=== PATIENT | female | born 1995 | race Caucasian/White ===

== ENCOUNTER 2019-01-12 06:49 | Inpatient (IN) | payer BC ==
[~2019-01-12] VITALS: Ht 167.6 cm; Wt 73.6 kg
[2019-01-13] VITALS (44 sets, daily range): BP systolic 105–155; BP diastolic 55–83; PULSE 68–141; TEMP 97.9–98.6
--- NOTE | 2019-01-13 07:00 | NUR ---
Pt arrives on unit ambulatory with spouse for induction of labor. G1L0 at 39.6 weeks gestation. Changed into clean gown. EFM and toco applied. VSS. Denies vaginal bleeding, regular ctx, LOF, and reports GFM. Admission assessment completed. IV started in LW. Labs drawn. LR infusing. Consents signed. Pt oriented to room. Updated on POC. Bed locked in low position. Call light within reach. No questions or concerns at this time.
[2019-01-13] MEDS ORDERED: PRENATAL MVI (07:19)
[2019-01-13 08:07] LABS: BASO % 0.4 % (0.0-2.0); EOS # 0.1 (0.0-0.7); EOS % 0.8 % (0-4.0); GRAN # 5.9 (1.4-6.5); GRAN % 71.5 % (42.2-75.2); HEMATOCRIT 38.9 % (37.0-47.0); HEMOGLOBIN 13.5 g/dl (12.5-16.0); LYMPH # 1.4 (1.2-3.4); MEAN CELL VOLUME 92 fl (80.0-100.0); MEAN CORPUSCULAR HEMOGLOBIN 32 pg (27.0-31.0); MEAN CORPUSCULAR HGB CONC 35 g/dl (33.0-37.0); MEAN PLATELET VOLUME 10.4 fl (7.4-10.4); MONO # 0.7 (0.1-0.6); MONO % 8.9 % (1.7-9.3); PLATELET COUNT 219 K/mm3 (130-400); RED BLOOD COUNT 4.24 M/mm3 (4.10-5.30); REDCELL DISTRIBUTION WIDTH-CV 12.8 % (11.5-14.5)
[2019-01-13 08:32] LABS: ALBUMIN 3.2 gm/dL (3.5-5.0); BILIRUBIN,TOTAL 0.9 mg/dL (0.0-1.0); CALCIUM 9.2 mg/dL (8.4-10.2); CREATININE, serum 0.5 (0.52-1.25); TOTAL PROTEIN 6.5 gm/dL (6.4-8.2)
--- NOTE | 2019-01-13 10:25 | NUR ---
Pt sitting up for epidural placement. Difficulty tracing FHR due to maternal position. RN at bedside adjusting monitors. FHR audible.
--- NOTE | 2019-01-13 16:25 | NUR ---
SVE per this RN C/+1. Pushing efforts performed. Moves vertex well. Dr. Chow notified. See physiciain notification. Pt prepped for delivery. 1645-Dr. Chow at bedside. Begins pushing with pt. 170- of viable male attended by Dr. Chow. Cord clamped x 2 and cut from umbilicus. dried and placed on mother's abdomen. Care of infant to Padmini Christie RN. Apgars 8/9/9. 1705- of placenta. Pitocin bolus infusing. Fundus firm at umbilicus. Bleeding WNL. Second degree laceration and episiotomy repaired. Pericare performed. Ice pack applied. Pt updated on POC. Safety reviewed. Call light within reach. No questions or concerns at this time.
--- NOTE | 2019-01-13 20:00 | NUR ---
Up to bathroom with steady gait, voids good amount, performs own pericare after instruction, clean gown on. Ambulates to room.
[2019-01-14] VITALS: BP 118/67; PULSE 69; TEMP 98.3
[2019-01-14 08:00] VITALS: BP 130/68; PULSE 86; TEMP 98.1
--- NOTE | 2019-01-14 08:15 | NUR ---
Rests in bed holding baby. Request pain medication. Percocet 5/325 mg one given per request and as ordered. Denies other needs at this time.
--- NOTE | 2019-01-14 09:23 | NUR ---
Initial visit; Parents thanked for looking in them and offering congratulations for the of their son. thanked family for choosing [facility].
[2019-01-14 13:00] VITALS: BP 119/57; PULSE 92; TEMP 97.7
--- NOTE | 2019-01-14 13:15 | NUR ---
Rests in bed, alert. 1330 Baby to breast. 1340 Percocet 5/325 mg one given per request and as ordered.
[2019-01-14 16:45] VITALS: BP 131/78; PULSE 94; TEMP 97.5
--- NOTE | 2019-01-14 17:28 | NUR ---
Visits with family. Request pain medication. Percocet 5/325 mg one given per request and as ordered.
[2019-01-14 21:30] VITALS: BP 127/79; PULSE 90; TEMP 98.1
[2019-01-15 08:11] VITALS: BP 121/80; PULSE 93; TEMP 98.6
[2019-01-15] MEDS ORDERED: PERCOCET 325 MG1 TA2 PO (10:25)
== END 2019-01-15 12:52 | disposition home or self-care (01) | DRG 807 ==
LOC: LDR 01-13 06:49 → OB 01-13 21:22
PROVIDERS: ADMIT Obstetrics & Gynecology
PROC: 10E0XZZ Delivery of Products of Conception, External Approach (ICD-10-PCS; principal; 2019-01-13)
PROC: 0KQM0ZZ Repair Perineum Muscle, Open Approach (ICD-10-PCS; 2019-01-13)
PROC: 10907ZC Drainage of Amniotic Fluid, Therapeutic from Products of Conception, Via Natural or Artificial Opening (ICD-10-PCS; 2019-01-13)
PROC: 3E033VJ Introduction of Other Hormone into Peripheral Vein, Percutaneous Approach (ICD-10-PCS; 2019-01-13)
DX: O99.89 Other specified diseases and conditions complicating pregnancy, childbirth and the puerperium (principal); Z37.0 Single live birth; O70.1 Second degree perineal laceration during delivery; N28.89 Other specified disorders of kidney and ureter; Z3A.39 39 weeks gestation of pregnancy
CPT/HCPCS: J2590; J7120

== ENCOUNTER 2020-12-06 10:01 | Outpatient (CLI) | payer BC ==
[~2020-12-06] VITALS: Ht 167.6 cm; Wt 73.5 kg
[~2020-12-06 10:01] MED LIST: PERCOCET 325 MG1 TA2 PO; PRENATAL MVI
--- NOTE | 2020-12-06 10:20 | NUR ---
Admits to L&D for scheduled external version. Ambulatory to unit, accompanied by spouse. Procedure explained to patient et spouse. Discussed ultrasound would be performed prior to beginning procedure to assure presentation and lie. Discussed Brethine administration, IV start, potential for emergent ceserean section. Verbalizes understanding. Denies any questions or concerns.
[2020-12-06] MEDS ORDERED: ASPIRIN 81M81 MG/TA2 PO (10:57)
[2020-12-06 11:00] VITALS: BP 127/73; PULSE 91; TEMP 98.8
--- NOTE | 2020-12-06 11:21 | NUR ---
ALYSSIA Rodriguez, in to speak with patient and introduce herself.
[2020-12-06 11:30] VITALS: PULSE 86
--- NOTE | 2020-12-06 11:37 | NUR ---
Allowed off of EFM @ this time, up to bathroom.
--- NOTE | 2020-12-06 11:45 | NUR ---
here, bedside ultrasound confirms breech presentation.
--- NOTE | 2020-12-06 11:47 | NUR ---
Verbal order obtained by to hold off on administration of Brethine. in room. and begin procedure without use of Brethine. Coaching provided to patient througout to breathe through discomfort, working to relax abdominal muscles. Two aggressive attempts made to flip fetus, unsuccessful. Patient requests to stop, declines third attempt. Patient tearful, but tolerates procedure very well.
--- NOTE | 2020-12-06 11:59 | NUR ---
Placed back on EFM following external cephalic version attempts. Will monitor for one hour per 's verbal order.
[2020-12-06 12:05] VITALS: BP 127/78; PULSE 93
--- NOTE | 2020-12-06 12:05 | NUR ---
1205: Repositioned to left lateral. Patient uncomfortable in this position, so flipped to right lateral for comfort.
--- NOTE | 2020-12-06 12:10 | NUR ---
Note what appears to be prolonged deceleration from [id number], though not enough information has been obtained following procedure. Repositioning of patient, will continue to monitor. Moderate variability remains throughout. in-house, reviewed strip.
--- NOTE | 2020-12-06 12:25 | NUR ---
Roles in to speak with patient prior to leaving hospital. Patient assured monitor strip looks great. Discusses plan of care in future, keeping future appointments as scheduled. No need to schedule appointment before already scheduled existing appointments.
[2020-12-06 13:00] VITALS: BP 93/56; PULSE 75
--- NOTE | 2020-12-06 13:00 | NUR ---
Discharge instructions gone over with patient and spouse. Allowed to ask questions. Inquire as to activity restrictions, complications to look out for. Discussed to return immediately if she experiences any bright red bleeding, leaking of fluid, or feels as though her fetus is not as active as usual. Discuss no activity restrictions, but encouraged to listen to her body, as she will likely be sore over the next few days. Patient spouse mentions that she has had some "heart flutters" the last couple of weeks. Patient denies any of those feelings today. Encouraged po fluid increase. Discussed if she is to become lightheaded, dizzy, or nauseated, or diaphoretic during one of these episodes, she should present to ED to be evaluated. Patient denies every having any of those symptoms when she has felt the "flutter" in the past. Instructed to keep next scheduled office visit on Friday with . Verbalizes understanding. Denies any further questions or concerns. Discussed she may take Tylenol/Benadryl for comfort.
--- NOTE | 2020-12-06 13:05 | NUR ---
Allowed off of EFM, after noting no signs of distress per monitoring. Reactive strip noted. Patient reports positive movement.
--- NOTE | 2020-12-06 13:20 | NUR ---
Discharged to home. Ambulatory off of unit.
== END 2020-12-06 13:20 | disposition home or self-care (01) ==
LOC: LDRO 10:01
DX: O32.1XX0 Maternal care for breech presentation, not applicable or unspecified (principal); Z3A.37 37 weeks gestation of pregnancy

== ENCOUNTER → 2020-12-13 | Outpatient (CLI) | payer BC ==
[~2020-12-13] MED LIST changes: +ASPIRIN 81M81 MG/TA2 PO
== END ==
LOC: ZCOL.LAB 12:00
DX: Z20.822 Contact with and (suspected) exposure to COVID-19 (principal)

== ENCOUNTER 2020-12-18 03:06 | Inpatient (IN) | payer BC ==
[~2020-12-18] VITALS: Ht 167.6 cm; Wt 73.6 kg
[2020-12-18] VITALS (19 sets, daily range): BP systolic 109–131; BP diastolic 47–82; PULSE 71–100; TEMP 97.7–98.1
--- NOTE | 2020-12-18 06:20 | NUR ---
Assumed care of patient. States feeling a little funny. States has not had any thing to eat. Cold wash cloth put on forehead. Answers questions.
--- NOTE | 2020-12-18 06:30 | NUR ---
Rests in bed, alert. Assessment done, questions offered and answered. heart tones 130s with accelerations noted with no decelerations. 0720 Ambulates to the o.r. with this nurse and spouse.
[2020-12-18 06:31] LABS: BASO % 0.3 % (0.0-2.0); EOS # 0.1 (0.0-0.7); EOS % 1.6 % (0-4.0); GRAN # 3.7 (1.4-6.5); GRAN % 57.7 % (42.2-75.2); HEMOGLOBIN 12.8 g/dl (12.5-16.0); LYMPH # 1.8 (1.2-3.4); MEAN CELL VOLUME 92 fl (80.0-100.0); MEAN CORPUSCULAR HEMOGLOBIN 32 pg (27.0-31.0); MEAN CORPUSCULAR HGB CONC 35 g/dl (33.0-37.0); MEAN PLATELET VOLUME 9.7 fl (7.4-10.4); MONO # 0.7 (0.1-0.6); MONO % 10.3 % (1.7-9.3); PLATELET COUNT 206 K/mm3 (130-400); RED BLOOD COUNT 3.98 M/mm3 (4.10-5.30); REDCELL DISTRIBUTION WIDTH-CV 12.4 % (11.5-14.5)
[2020-12-18 06:34] LABS: HEMATOCRIT 36.7 % (37.0-47.0)
--- NOTE | 2020-12-18 08:13 | NUR ---
To pacu via bed, alert. Report given by anesthesia Jennifer. Denies any pain at this time.
--- NOTE | 2020-12-18 08:35 | NUR ---
Baby brought in, holds baby lovingly.
--- NOTE | 2020-12-18 09:00 | NUR ---
Rests in bed, alert. Holds baby lovingly. Spouse at bedside. Denies any pain at this time.
--- NOTE | 2020-12-18 09:30 | NUR ---
Breastfeeds baby, latches on well. Percocet 5/325 mg two given per request and as ordered.
--- NOTE | 2020-12-18 10:45 | NUR ---
Rests in bed, alert. Eating breakfast. Denies any pain or discomfort at this time.
--- NOTE | 2020-12-18 11:45 | NUR ---
Rests in bed, alert. Denies any needs at time.
--- NOTE | 2020-12-18 15:30 | NUR ---
Ambulates to the bathroom. Rowe catheter removed, angle-care done. Ambulates back to bed.
[2020-12-19 05:05] VITALS: BP 124/73; PULSE 77; TEMP 98
--- NOTE | 2020-12-19 06:30 | NUR ---
REPORT RECIEVED. INTO ROOM TO INTRODUCE SELF AND EXPLAIN CARE OF THE DAY. LOTS OF QUESTIONS ASKED AND ANSWERED ABOUT BABY'S CARE FOR THE DAY WELL. MOM IN BED HOLDING BABY, DAD SITTING ON BENCH. WILL CONTINUE TO MONITOR.
[2020-12-19 06:45] VITALS: BP 113/68; PULSE 78; TEMP 97.9
[2020-12-19 07:28] LABS: HEMOGLOBIN 11.8 g/dl (12.5-16.0)
[2020-12-19 07:30] LABS: HEMATOCRIT 34.3 % (37.0-47.0)
--- NOTE | 2020-12-19 10:55 | NUR ---
Initial visit attempt; Patient resting, [place] Sleeve Setter left card of congratulations for the of her daughter and information regarding the availability of spiritual care at our hospital.
[2020-12-19 11:40] VITALS: BP 117/71; PULSE 88; TEMP 98.3
[2020-12-19 21:00] VITALS: BP 108/66; PULSE 77; TEMP 97.5
[2020-12-20 07:30] VITALS: BP 115/59; PULSE 68; TEMP 98.4
[2020-12-20] MEDS ORDERED: PERCOCET 325 MG1 TA2 PO (08:45)
--- NOTE | 2020-12-20 11:30 | NUR ---
DISCHARGE TEACHING COMPLETED. PATIENT EDUCATED ABOUT F/U APPOINTMENTS AND MEDICATIONS. QUESTIONS INVITED AND ANSWERED.
== END 2020-12-20 12:11 | disposition home or self-care (01) | DRG 788 ==
LOC: OB 03:06
PROVIDERS: ADMIT Obstetrics & Gynecology
PROC: 10D00Z1 Extraction of Products of Conception, Low, Open Approach (ICD-10-PCS; principal; 2020-12-18)
DX: O32.1XX0 Maternal care for breech presentation, not applicable or unspecified (principal); O99.892 Other specified diseases and conditions complicating childbirth; N28.89 Other specified disorders of kidney and ureter; O71.89 Other specified obstetric trauma; Z3A.39 39 weeks gestation of pregnancy; Z37.0 Single live birth; Z90.5 Acquired absence of kidney
CPT/HCPCS: J0690; J1100; J2405; J2590; J2765; J7120

== ENCOUNTER 2024-01-30 07:05 | Inpatient (IN) | payer BC ==
[~2024-01-30] VITALS: Ht 165.2 cm; Wt 74.1 kg
[2024-01-30] VITALS (17 sets, daily range): BP systolic 108–131; BP diastolic 56–71; PULSE 64–90; TEMP 97.9
[~2024-01-30 07:05] MED LIST changes: +LR 1,000 ML IV SCH; +Ondansetron 4 MG/2 ML VIAL IV SCH
[2024-01-30] MEDS ORDERED: LR 1,000 ML IV SCH (07:15)
[2024-01-30] MEDS ORDERED: PROFERRIN ES12 MG (07:39)
[2024-01-30 08:02] LABS: HEMATOCRIT 37.4 % (37.0-47.0); MEAN CELL VOLUME 93 fl (80.0-100.0); MEAN CORPUSCULAR HEMOGLOBIN 32 pg (27-31); MEAN CORPUSCULAR HGB CONC 35 g/dl (33.0-37.0); MEAN PLATELET VOLUME 10.1 fl (7.4-10.4); PLATELET COUNT 207 K/mm3 (130-400); RED BLOOD COUNT 4.03 M/mm3 (4.10-5.30); REDCELL DISTRIBUTION WIDTH-CV 13.2 % (11.5-14.5)
[2024-01-30] MEDS ORDERED: dexAMETHasone 10 MG/ML VIAL ONE (08:22)
[2024-01-30] MEDS ORDERED: NS 10 ML IV ONE (08:22)
[2024-01-30] MEDS ORDERED: Oxytocin 10 UNITS/ML VIAL ONE (08:22)
[2024-01-30] MEDS ORDERED: Ondansetron 4 MG/2 ML VIAL ONE (08:22)
[2024-01-30] MEDS ORDERED: Ketorolac 30 MG/ML VIAL ONE (08:22)
[2024-01-30 08:24] LABS: BAND 5 % (0-10); NEUTROPHILS 64 % (42.0-75.2)
[2024-01-30 08:26] LABS: LYMPHOCYTE 23 % (20.0-51.0); PLATELET ESTIMATE NORMAL (NORMAL)
[2024-01-30] MEDS ORDERED: Phenylephrine 10 MG/ML VIAL ONE (09:20)
[2024-01-30] MEDS ORDERED: Measles/Mumps/Rubella Virus Vaccine Live w Diluent 0.5 ML VIAL SQ SCH (10:00)
[2024-01-30] MEDS ORDERED: Ondansetron 4 MG/2 ML VIAL IV PRN ×2 (10:00→10:45)
[2024-01-30] MEDS ORDERED: Magnes Hydrox (MOM) 80 MG/ML 30 ML CUP PO PRN (10:00)
[2024-01-30] MEDS ORDERED: Loratadine 10 MG TAB PO PRN (10:00)
[2024-01-30] MEDS ORDERED: Naloxone 0.4 MG/ML VIAL IV PRN (10:00)
[2024-01-30] MEDS ORDERED: LR 1,000 ML IV PRN (10:00)
[2024-01-30] MEDS ORDERED: Sennosides/Docusate 8.6-50 MG TAB PO SCH (17:00)
[2024-01-30] MEDS ORDERED: traZODone 50 MG TAB PO PRN (21:00)
[2024-01-31 07:49] VITALS: BP 111/73; PULSE 63; TEMP 97.6
[2024-01-31] MEDS ORDERED: Prenatal Vitamins/Iron/FA TAB PO SCH (09:00)
--- NOTE | 2024-01-31 11:26 | NUR ---
1045 CATHY bandage wrap placed on left upper thigh of patient. SCDs placed bilaterally with instructions to keep in place while in bed. Pt verbalizes understanding.
--- NOTE | 2024-01-31 16:28 | NUR ---
coat repair inspector bedside to assess patient's left leg.
[2024-01-31 19:57] VITALS: BP 120/66; PULSE 70; TEMP 97.9
[2024-02-01 07:58] VITALS: BP 111/73; PULSE 78; TEMP 98.3
--- NOTE | 2024-02-01 11:55 | NUR ---
DISCHARGE INSTRUCTIONS REVIEWED WITH PT REGARDING FOLLOW-UP, PAIN MANAGEMENT, MEDICATIONS, AND REASONS TO CALL/SEE PHYSICIAN. QUESTIONS INVITED AND ANSWERED. PT VERBALIZES UNDERSTANDING.
--- NOTE | 2024-02-01 15:10 | NUR ---
PT DISCHARGED HOME, AMBULATES OUT OF FACILITY ACCOMPANIED BY SPOUSE AND THIS NURSE.
== END 2024-02-01 15:10 | disposition home or self-care (01) | DRG 788 ==
LOC: OB 07:05 → LDR 07:15 → OB 07:48
PROVIDERS: ADMIT Obstetrics & Gynecology
PROC: 10D00Z1 Extraction of Products of Conception, Low, Open Approach (ICD-10-PCS; principal; 2024-01-30)
DX: O34.211 Maternal care for low transverse scar from previous cesarean delivery (principal); Z3A.39 39 weeks gestation of pregnancy; Z37.0 Single live birth
CPT/HCPCS: A9284; J0665; J0690; J1100; J1885; J2371; J2405; J2590; J7120